=== PATIENT | female | born 1945 | race Caucasian/White ===

== ENCOUNTER 2017-07-12 06:43 | Day surgery (SDC) | payer MEDICARE, BC ==
[~2017-07-12] VITALS: Ht 162.6 cm; Wt 99.8 kg
[~2017-07-12 06:43] MED LIST: ASPIRIN81 MG PO; AUGMENTIN875TAB PO; CARVEDILOL6.25 MG PO; CIPROFLOXACN500 MG PO; CIPROFLOXACN750 MG PO; DIFLUCAN150 MG PO; FLEXERIL5 MG PO; FLUCONAZOLE150 MG PO; HYDROCHLORO25 MG/TAB PO; KEFLEX500 MG PO; LIPITOR80 M1 PO; METOPROLOL SUCC50 MG PO; NITROFURANTN100 M2 PO; NITROFURANTN100 MG PO; PLAVIX75 MG PO; POT CHLORIDE10 ME1 PO; PRILOSEC20 MG/CAP PO
[2017-07-12 08:57] VITALS: BP 129/71
== END 2017-07-12 09:15 | disposition home or self-care (01) ==
LOC: ENDO 06:43
PROVIDERS: ATTEND Surgery
PROC: 0DJD8ZZ Inspection of Lower Intestinal Tract, Via Natural or Artificial Opening Endoscopic (ICD-10-PCS; principal; 2017-07-12)
DX: K63.9 Disease of intestine, unspecified (principal); Z90.49 Acquired absence of other specified parts of digestive tract; Z87.440 Personal history of urinary (tract) infections

== ENCOUNTER 2017-09-21 10:56 | Emergency (ER) | payer MEDICARE, BC ==
[~2017-09-21] VITALS: Ht 162.6 cm; Wt 100.0 kg
[2017-09-21 12:31] LABS: HEMATOCRIT 34.7 % (37.0-47.0); HEMOGLOBIN 11.3 g/dl (12.0-16.0); IMMATURE GRANULOCYTES 0.5 % (0.0-1.0); MEAN CELL VOLUME 97.5 fL CALC (80.0-100.0); MEAN CORPUSCULAR HGB 31.7 pG CALC (26.0-32.0); MEAN CORPUSCULAR HGB CONC 32.6 g/L CALC (32.0-36.0); NEUT# 6.25 thou/uL (2.00-7.15); RED BLOOD COUNT 3.56 mill/uL (4.20-5.60); RED CELL DISTRI WIDTH 12.7 % (11.5-15.5)
[2017-09-21 12:53] LABS: ALBUMIN 3.6 g/dL (3.2-5.0); ALKALINE PHOSPHATASE 149 u/l (38-126); ANION GAP 16 (6-22 (CALC)); BILIRUBIN, TOTAL 0.5 mg/dL (0.0-1.4); BUN 11 mg/dL (8-23); BUN/CREATININE RATIO 12 (12-20 (CALC)); CARBON DIOXIDE 26 mmol/l (22-30); CHLORIDE 103 mmol/l (95-108); CREATININE 0.9 mg/dL (0.5-1.0); GFR > 60 ML/MIN (>=60 (CALC)); GFR FOR AFR.AMER. > 60 ML/MIN (>=60 (CALC)); LIPASE 121 u/l (23-300); POTASSIUM 4.5 mmol/l (3.5-5.1); SGOT/AST 53 u/l (9-36); SGPT/ALT 34 u/l (11-66); SODIUM 141 mmol/l (137-146); TOTAL PROTEIN 7.1 g/dL (6.3-8.2)
[2017-09-21 14:09] LABS: URINE BILIRUBIN - DIPSTICK NEGATIVE (NEGATIVE); URINE BLOOD DIPSTICK TRACE-INTACT (NEGATIVE); URINE CLARITY CLOUDY; URINE COLOR YELLOW; URINE GLUCOSE - DIPSTICK NEGATIVE (NEGATIVE); URINE KETONE NEGATIVE (NEGATIVE); URINE LEUK ESTERASE LARGE (NEGATIVE); URINE NITRITE - DIPSTICK POSITIVE (Negative); URINE PH 6.5 (4.5-8.0); URINE PROTEIN - DIPSTICK NEGATIVE (NEG-TRACE); URINE UROBILINOGEN - DIPSTICK 0.2 E.U./dL (0.2)
[2017-09-21 14:33] LABS: URINE BACTERIA MODERATE hpf; URINE WBC TNTC WBC/hpf (0-5)
[2017-09-21] MEDS ORDERED: LAMISIL AT1 % EX (14:47)
[2017-09-21] MEDS ORDERED: CEPHALEXIN500 M1 PO (14:47)
[2017-09-21] MEDS ORDERED: DIFLUCAN150 MG PO (14:47)
[2017-09-21 14:59] VITALS: BP 118/71
== END 2017-09-21 15:06 | disposition home or self-care (01) ==
LOC: ED 10:56
PROVIDERS: Family Medicine
DX: R10.9 Unspecified abdominal pain (principal); N39.0 Urinary tract infection, site not specified; Z98.0 Intestinal bypass and anastomosis status; B96.20 Unspecified Escherichia coli [E. coli] as the cause of diseases classified elsewhere; M54.5 Low back pain; R31.9 Hematuria, unspecified